=== PATIENT | female | born 1990 | race Caucasian/White ===

== ENCOUNTER 2020-05-09 05:29 | Inpatient (IN) ==
--- NOTE | 2020-05-08 14:07 | History and Physical Report ---
DATE OF ADMISSION: 05/09/2020 CHIEF COMPLAINT: Preop for . BRIEF HISTORY: The patient is a 30-year-old G3, P0-0-2-0, at 39 weeks gestational age with an TYLOR of 05/15/2020 by LMP of 08/09/2019 consistent with first trimester ultrasound who presents for a scheduled preoperative appointment for primary section tomorrow for breech presentation. Endorses movement. Denies contractions, leaking of fluid or vaginal bleeding. Was found to be breech at last visit and was counseled regarding external cephalic version versus primary section and did opt for section. ISSUES: 1. Breech. 2. History of missed AB x2. LABS: B positive, antibody screen negative, first trimester hematocrit was 37.7, RPR nonreactive. Hepatitis B surface antigen nonreactive, rubella immune, HIV negative, chlamydia negative, gonorrhea negative, GBS negative, COVID negative. One hour Glucola was 114. Anatomy scan within normal limits with a fundal placenta. Genetic screening declined. 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 G1 2012 SAB. 2. G2 2018 SAB. 3. G3, current . Menarche at age 11. Periods are regular every 28 days. She does have a history of cryosurgery in 2014. Last Pap of 03/2019, had negative cotesting. No history of STDs. PAST MEDICAL HISTORY: None. PAST SURGICAL HISTORY: 1. History of cryosurgery. 2. [place] teeth extraction. MEDICATIONS: vitamin ALLERGIES: AMOXICILLIN CAUSING HIVES SOCIAL HISTORY: Denies any tobacco, alcohol or illicit drug use. FAMILY HISTORY: Not significant for defects, congenital heart disease or VTE disorder. OBJECTIVE: VITAL SIGNS: Blood pressure 118/72. GENERAL: Alert, in no acute distress. HEENT: Normocephalic, atraumatic. HEART: Regular rate and rhythm. LUNGS: Clear to auscultation bilaterally. ABDOMEN: Soft, gravid, nontender. Bedside ultrasound confirmed breech position. heart tones were visualized on the ultrasound and within normal limits. ASSESSMENT: The patient is a 30-year-old G3, P0-0-2-0, at 39 weeks gestational age, presenting for preoperative appointment for scheduled primary section secondary to breech presentation. PLAN: Including indications, risks, benefits, and alternatives for primary were reviewed with risks including infection, bleeding, injury to adjacent structures including bowel, bladder, ureters, blood vessels, nerves, baby with possible need for life-saving blood transfusion and/or hysterectomy. All questions were reviewed in depth. Consent was signed by the patient and myself. She did meet with our jewel stripper to review further instructions regarding tomorrow. We will plan on checking position again in the morning. She was given ample time for questions, they were answered to apparent satisfaction. SHARON
[2020-05-09] MEDS ORDERED: LACTATED RINGER'S 1,000 ML IV SCH ×2 (06:00→09:04)
[2020-05-09] MEDS ORDERED: CLINDAMYCIN 900 MG in DEXTROSE 5% 50 ML IV SCH (06:00)
[2020-05-09] MEDS ORDERED: CITRIC ACID/SODIUM CITRATE 15 ML UDC PO SCH (06:00)
[2020-05-09] MEDS ORDERED: DEXTROSE 5% IV SCH (06:00)
[2020-05-09] MEDS ORDERED: GENTAMICIN SULFATE IV SCH (06:00)
[2020-05-09 06:23] LABS: Basophils # (auto) 0.02 K/uL (0-0.2); Basophils % (auto) 0.2 %; Eosinophils # (auto) 0.14 K/uL (0-0.5); Eosinophils % (auto) 1.3 %; Hematocrit (blood only) 36.6 % (37-47); Hemoglobin 12.3 g/dL (12.0-16.0); Immature Granulocytes # (auto) 0.05 K/uL (0.00-0.02); Immature Granulocytes % (auto) 0.5 %; Lymphocytes # (auto) 1.81 K/uL (1.2-3.4); Mean Corpuscular Hemoglobin 30.2 pg (25-34); Mean Corpuscular Volume 89.9 fL (80-100); Mean Platelet Volume 9.4 fL (7.4-10.4); Monocytes # (auto) 0.74 K/uL (0.11-0.59); Neutrophils # (auto) 7.86 K/uL (1.4-6.5); Platelet Count 339 K/uL (130-400); RDW Coefficient of Variation 13.7 % (11.5-14.5); RDW Standard Deviation 45.1 fL (36.4-46.3); Red Blood Count 4.07 M/uL (4.2-5.4); White Blood Count 10.62 K/uL (4.8-10.8)
[2020-05-09 06:25] LABS: Mean Corpuscular Hgb Conc 33.6 g/dL (32-36)
[2020-05-09] MEDS ORDERED: MoRPHine SULFATE PF 1 MG/ML 10 ML AMP/VIAL ONE (06:39)
[2020-05-09] MEDS ORDERED: OXYTOCIN 10 UNITS/ML VIAL ONE (06:39)
[2020-05-09] MEDS ORDERED: ONDANSETRON INJ 2 MG/ML 2 ML VIAL ONE (06:39)
[2020-05-09] MEDS ORDERED: fentaNYL citrate 100 MCG/2 ML VIAL ONE (06:39)
[2020-05-09] MEDS ORDERED: PHENYLEPHRINE 100MCG/ML 5ML SYR ONE (06:39)
--- NOTE | 2020-05-09 06:44 | Anesthesiology Consultation ---
Date of Service May 09, 2020 Assessment & Plan (1) Encounter for pre-operative examination: Chart Review Chart Review: Acceptable Risk for Surgery and Patient NOT seen in Pre Admission Testing Consults Requested none History Surgery Operation Date: 05/09/20 07:30 Proposed Procedures p Section in LD - Codie Valadez MD Height/Weight Height: 5 ft 8 in Weight: 86.183 kg Allergies Allergy/AdvReac Type Severity Reaction Status Date / Time amoxicillin Allergy Hives Verified 05/08/20 10:22 Medications Home Medications Medication Instructions Recorded Confirmed Last Taken prenat.vits,emerson,tgu-[id number] 1 tab PO QAM 10/10/19 05/09/20 05/08/20 22:00 lactobacillus combination no.8 3 3,000 mmu cells PO QAM 10/13/19 05/09/20 05/08/20 20:00 billion cell capsule NPO Date Last Intake of Fluids: 05/08/20 Time Last Intake of Fluids: 22:00 Date Last Intake of Solids: 05/08/20 Time Last Intake of Solids: 19:00 Past Medical History Medical History Encounter for anatomic survey History of chicken pox Miscarriage Missed Nausea and vomiting after administration of anesthetic agent Exercise / Class Metabolic Activity II 4-5 Yardwork/Stairs/Walk up hill Past Family History Family History Grandmother (Paternal) Diabetes Heart disease Grandmother (Paternal) Heart disease Grandfather (Maternal) Heart disease Past Surgical History Surgical History History of cryosurgery CERVIX S/P wisdom tooth extraction Past Anesthesia History No Hx of Anesthesia Complications and No Family Hx of Anesthesia Complications History of PONV No Hx of PONV and No Hx of Motion Sickness Social History Smoking Status: Former smoker Do You Dip or Chew Tobacco: No Smoking End Date: QUIT 2017, THEN SMOKED FOR ABOUT 4 MONTHS. BUT HAS QUIT AGAIN OVER A YEAR Hx Alcohol Use: No Hx Substance Use: No substance use type: does not use Physical Exam Vital Signs Last Vital Signs Temp 37.2 C 05/09/20 05:45 Pulse 76 05/09/20 07:00 Resp 18 05/09/20 05:45 BP 122/77 05/09/20 07:00 Testing Laboratory Results 05/09/20 06:10
--- NOTE | 2020-05-09 07:19 | History & Physical Bridge Note ---
Date of Service May 09, 2020 History & Physical Bridge Note I have examined the patient, reviewed the History & Physical and in the interval since the performance of the History & Physical I have noted the following changes of clinical significance: no changes noted
[2020-05-09] MEDS ORDERED: KETOROLAC 30 MG/ML VIAL IV PRN (07:48)
[2020-05-09] MEDS ORDERED: LACTATED RINGER'S 500 ML IV PRN (07:48)
[2020-05-09] MEDS ORDERED: MEPERIDINE HCL 25 MG/ML CARP/VIAL IV PRN (07:48)
[2020-05-09] MEDS ORDERED: MoRPHine SULFATE PF 1 MG/ML 10 ML AMP/VIAL INT SPINAL ONE (07:48)
[2020-05-09] MEDS ORDERED: NALOXONE HCL 0.4 MG/1 ML VIAL/CARP IV PRN (07:48)
[2020-05-09] MEDS ORDERED: ONDANSETRON INJ 2 MG/ML 2 ML VIAL IV PRN (07:48)
[2020-05-09] MEDS ORDERED: NALOXONE HCL 1 MG in SODIUM CHLORIDE 0.9% 1000ML 1,000 ML IV PRN (07:48)
[2020-05-09] MEDS ORDERED: ePHEDrine sulfate 50 MG/ML AMP IV PRN (07:48)
[2020-05-09] MEDS ORDERED: diphenhydrAMINE 50 MG/ML VIAL IV PRN (07:48)
[2020-05-09] MEDS ORDERED: NALOXONE HCL 0.08 MG in SYRINGE 1.8 ML IV PRN (07:48)
[2020-05-09] MEDS ORDERED: MoRPHine SULFATE 2 MG/ML CARP IV PRN (07:48)
[2020-05-09] MEDS ORDERED: NO NARCOTICS OR SEDATIVES SCH (08:00)
[2020-05-09] MEDS ORDERED: SODIUM CHLORIDE 0.9% 1000ML 1,000 ML IV SCH (08:00)
--- NOTE | 2020-05-09 08:49 | Post Operative Brief Note ---
PG Immediate Post Op with CF Date of Surgery May 09, 2020 Pre & Post Diagnosis Operation Date: 05/09/20 07:30 Pre-Op Diagnosis: single intrauterine at 39 and 1/7 weeks gestation, breech presentation Post-Op Diagnosis: single intrauterine at 39 and 1/7 weeks gestation, breech presentation I identified the patient and participated in the time-out.: Yes Procedure Operation Date: 05/09/20 07:30 Actual Procedures p Primary Low Transverse Section in LD for live female at 0759 - Codie Valadez MD Surgeon Codie Valadez MD Primary Counselor Lloyd Ferrara MD Estimated Blood Loss 600 Findings Consistent with Post-Op Diagnosis Normal appearing uterus, bilateral fallopian tubes, and right ovary. Posterior left ovary had findings consistent with old endometrioma, but remainder of left ovary was within normal limits. Findings also include viable female infant with APGARs 8 and 9 Fluids 1500ml Specimens Specimen Description: placenta-hold arterial and venous cord blood gases cord blood Drains Nolasco Catheter (UOP 200ml) Anesthesia Type L&D Only Epidural Exists Complications none Disposition Accompanied Patient To Recovery: Yes Disposition: L&D
--- NOTE | 2020-05-09 08:50 | Anesthesiology Progress Note ---
Date of Service May 09, 2020 Anesthesia Post Procedure Vital Signs Vital Signs: Temp Pulse Resp BP Pulse Ox 05/09/20 08:46 80 100 05/09/20 08:42 76 122/68 05/09/20 08:41 86 99 05/09/20 07:00 37.0 C 76 18 122/77 05/09/20 05:45 37.2 C 18 05/09/20 05:44 76 136/83 05/09/20 05:38 83 140/90 Transfer of Care Handoff Completed per policy Notes Mental Status: alert / awake / arousable and participated in evaluation Patient Amnestic to Procedure: No Nausea / Vomiting: adequately controlled Pain: adequately controlled Airway Patency, RR, SpO2: stable & adequate BP & HR: stable & adequate Hydration State: stable & adequate Neuraxial Anesthesia: was administered and sensory block is resolving Anesthetic Complications: no major complications apparent and Pt Satisfied with anesthetic care
[2020-05-09] MEDS ORDERED: DIPHTHERIA/TETANUS/PERTUSSIS 0.5 ML SYR/VIAL IM ONE (09:04)
[2020-05-09] MEDS ORDERED: SENNA 8.6 MG TAB PO PRN (09:04)
[2020-05-09] MEDS ORDERED: MAGNESIUM HYDROXIDE SUSP 30 ML UDC PO PRN (09:04)
[2020-05-09] MEDS ORDERED: BENZOCAINE 20% AER SPR 82.5 GM CAN EXT PRN (09:04)
[2020-05-09] MEDS ORDERED: HYDROCORTISONE ACETATE 25 MG SUPP PR PRN (09:04)
[2020-05-09] MEDS ORDERED: SUPERCREAM 0.870% 15 GM JAR EXT PRN (09:04)
[2020-05-09] MEDS ORDERED: OXYTOCIN 20 UNITS in LACTATED RINGER'S 1,000 ML IV SCH (09:30)
--- NOTE | 2020-05-09 10:23 | Operative Report ---
PG Post Operative Report Pre & Post Diagnosis Operation Date: 05/09/20 07:30 Pre-Op Diagnosis: single intrauterine at 39 and 1/7 weeks gestation, breech presentation Post-Op Diagnosis: single intrauterine at 39 and 1/7 weeks gestation, breech presentation I identified the patient and participated in the time-out.: Yes Procedure Operation Date: 05/09/20 07:30 Actual Procedures p Primary Low Transverse Section in for live female at 0759 - Codie Valadez MD Surgeon Codie Valadez MD Boat Finisher Lloyd Ferrara MD Estimated Blood Loss 600 Findings Consistent with Post-Op Diagnosis Normal appearing uterus, bilateral fallopian tubes, and right ovary. Posterior left ovary had findings consistent with old endometrioma, but remainder of left ovary was within normal limits. Findings also include viable female infant with APGARs 8 and 9 Fluids 1500ml Specimens Placenta, cord blood, cord gases Drains Nolasco catheter draining clear urine Anesthesia Type L&D Only Epidural Exists Complications none Disposition Accompanied Patient To Recovery: Yes Disposition: L&D Indications 30-year-old G3, P0-0-2-0 at 39 and 1/7 weeks gestational age with an TYLOR of 05/15/2020 by LMP of 08/09/2019 consistent with first trimester ultrasound who p resents for a scheduled section for breech presentation. Was found to be breech at 38 week visit and was counseled regarding external cephalic version versus primary section and did opt for section. Consent reviewed and signed. BSUS was performed prior to procedure confirming persistent breech presentation. Description of Procedure The patient was taken to the operating room after consents were ensured. The patient was properly identified. Spinal anesthesia was obtained without difficulty. Antibiotic prophylaxis was started prior to anesthesia. The patient was placed in a dorsal supine position with left lateral tilt. The patient was prepped and draped in normal sterile fashion. Anesthesia was tested to ensure adequate surgical levels. Pfannenstiel skin incision was performed and carried down to the underlying fascia with a knife. The fascia was then nicked in the midline and extended laterally with pickups and Bolaños scissors. The superior portion of the fascia was grasped with Kochers x2 and elevated off the underlying rectus muscles using blunt dissection and Bolaños scissors. The inferior portion of the fascia was then grasped with Ale clamps x2 and also elevated off the underlying muscles with blunt dissection and Bolaños scissors. Midline was then identified. The peritoneum was then entered and extended to provide adequate room for delivery of baby. The hand was inserted into the abdomen, uterus was noted to be clear of adhesions. Bladder blade was inserted. Bladder flap was created in the normal fashion. A low transverse uterine incision was then made in the uterus and extended bluntly in a superior to inferior fashion. Amniotomy was made at that time, with clear fluid at the time of rupture. breech was grasped and elevated to the hysterotomy. Breech was delivered atraumatically, right and left hips were delivered atraumatically using pinard maneuver. Moist blue towel was wrapped around the torso and delivered to the scapula. The left arm was swept across the chest atraumatically and delivered. The same was performed on the contralateral side. Okcnbhzoq-Aplonyo-Cppn maneuver was performed to deliver the head atraumatically. Nose and mouth were bulb suctioned on the surgical field. The cord was double clamped and cut and baby was handed off to awaiting nursery staff. Cord segment and blood were obtained. Placenta was then expressed from the uterus. The uterus was exteriorized. Several passes were made inside the uterus to remove the remaining membranes. Attention was then turned to the hysterotomy, which was then closed with a running locked suture of 0 Vicryl on a CTX needle. Imbricating layer was performed using 0 monocryl. There was noted to be good hemostasis. The posterior cul-de-sac was then inspected and cleaned of clot and debris. L ovary was noted to have findings c/w prior and resolved endometrioma and was stable. The hysterotomy was again inspected and noted to be hemostatic. The uterus was returned to the abdomen. The right and left pericolic gutters were cleaned of all clot and debris. The hysterotomy was again noted to be hemostatic. Space of Retzius was noted to be hemostatic. The fascia was then closed with a running suture of 0 Vicryl on a CT1 needle. Subcutaneous tissue was copiously irrigated and noted to be hemostatic. Subcutaneous tissue was reapproximated using 2-0 plain gut. The skin was then closed with a running suture of 3-0 Monocryl in a subcuticular fashion. At termination of the procedure, the fundal pressure was applied and a moderate amount of lochia was expressed. Dermabond was applied to the patient. She tolerated the procedure well. All sponge, needle, instrument counts were correct x 2. I attest to the content of the Intraoperative Record and any orders documented therein. Any exceptions are noted below. OB Procedure charges OB Charges 21394 C/S
[2020-05-09] MEDS: SIMETHICONE 80 MG CHEW PO SCH ×3 (12:32→20:35)
[2020-05-09] MEDS: DOCUSATE SODIUM 100 MG CAP PO SCH (20:35)
[2020-05-10] MEDS: IBUPROFEN 600 MG TAB PO PRN ×5 (00:03→20:07)
[2020-05-10] MEDS ORDERED: DC INTRASPINAL MORPHINE ONE (01:48)
[2020-05-10] MEDS ORDERED: oxyCODONE/ACETAMINOPHEN 5mg/325mg TAB PO PRN (01:49)
[2020-05-10] MEDS ORDERED: ONDANSETRON INJ 2 MG/ML 2 ML VIAL IV PRN (01:49)
[2020-05-10] MEDS ORDERED: diphenhydrAMINE 50 MG/ML VIAL IV PRN (01:49)
[2020-05-10] MEDS ORDERED: diphenhydrAMINE Capsule 25 MG CAP PO PRN (01:49)
[2020-05-10] MEDS ORDERED: PROMETHAZINE HCL 25 MG in SODIUM CHLORIDE 0.9% 50 ML IV PRN (01:49)
[2020-05-10 06:27] LABS: Basophils # (auto) 0.01 K/uL (0-0.2); Basophils % (auto) 0.1 %; Eosinophils # (auto) 0.17 K/uL (0-0.5); Eosinophils % (auto) 1.5 %; Hematocrit (blood only) 36.1 % (37-47); Hemoglobin 12.1 g/dL (12.0-16.0); Immature Granulocytes # (auto) 0.06 K/uL (0.00-0.02); Immature Granulocytes % (auto) 0.5 %; Lymphocytes # (auto) 1.96 K/uL (1.2-3.4); Lymphocytes % (auto) 17.5 %; Mean Corpuscular Hemoglobin 30.3 pg (25-34); Mean Corpuscular Hgb Conc 33.5 g/dL (32-36); Mean Corpuscular Volume 90.3 fL (80-100); Mean Platelet Volume 9.2 fL (7.4-10.4); Monocytes # (auto) 0.79 K/uL (0.11-0.59); Monocytes % (auto) 7.1 %; Neutrophils # (auto) 8.19 K/uL (1.4-6.5); Neutrophils % (auto) 73.3 %; Platelet Count 280 K/uL (130-400); RDW Coefficient of Variation 13.8 % (11.5-14.5); RDW Standard Deviation 45.8 fL (36.4-46.3); White Blood Count 11.18 K/uL (4.8-10.8)
--- NOTE | 2020-05-10 07:43 | Obstetrical Progress Note ---
Date of Service May 10, 2020 Assessment & Plan (1) : 30 y/o POD1 s/p pLTCS for breech presentation, doing well -Meeting all pp milestones, continue routine pp care -B+/rub imm Subjective Ambulation: ambulating normally Voiding: no voiding problems Passing Gas:: Yes Diet Tolerance:: regular diet Lochia:: Moderate (improving) Feeding Type:: breast feeding abd pain managed with pain meds Review of Systems Denies fevers, chills, n/v, REDDY, CP, SOB Physical Exam Constitutional WD/WN, vitals as above + not well nourished and no acute distress Respiratory normal respiratory effort, lungs clear to auscultation normal respiratory effort; no respiratory distress and no labored breathing Auscultation: lungs clear to auscultation bilaterally Cardiovascular RRR, no murmur, no edema Gastrointestinal (Abdomen) Inspection/Auscultation: abdomen normal to inspection and + abdominal surgical scar (c/d/i) Percussion/Palpation: abdomen soft; abdomen nontender and no guarding Fundus firm below umbilicus, NT Musculoskeletal BLE symmetric, nonerythematous, nontender Psychiatric A+Ox3, euthymic affect Results & Data ([facility]) Vital Signs (Past 12 Hours) Vital Signs Temp Pulse Resp BP Pulse Ox 05/10/20 07:12 98.1 F 64 16 122/79 05/10/20 04:40 98.8 F 82 16 124/77 98 05/10/20 01:16 17 99 05/10/20 00:05 16 98 05/09/20 23:45 99.3 F 82 18 120/78 98 05/09/20 23:00 16 98 05/09/20 22:00 17 99 05/09/20 21:00 16 98 05/09/20 20:25 97.5 F L 93 H 16 118/77 98 Laboratory Results 05/10/20 05/09/20 05/09/20 Range/Units 06:16 07:59 07:59 WBC 11.18 H (4.8-10.8) K/uL RBC 4.00 L (4.2-5.4) M/uL Hgb 12.1 (12.0-16.0) g/dL Hct 36.1 L (37-47) % MCV 90.3 (80-100) fL MCH 30.3 (25-34) pg MCHC 33.5 (32-36) g/dL RDW Std Deviation 45.8 (36.4-46.3) fL RDW Coeff of John 13.8 (11.5-14.5) % Plt Count 280 (130-400) K/uL MPV 9.2 (7.4-10.4) fL Immature Gran % (Auto) 0.5 % Neut % (Auto) 73.3 % Lymph % (Auto) 17.5 % [place] % (Auto) 7.1 % Eos % (Auto) 1.5 % Baso % (Auto) 0.1 % Neut # (Auto) 8.19 H (1.4-6.5) K/uL Lymph # (Auto) 1.96 (1.2-3.4) K/uL [place] # (Auto) 0.79 H (0.11-0.59) K/uL Eos # (Auto) 0.17 (0-0.5) K/uL Baso # (Auto) 0.01 (0-0.2) K/uL Immature Gran # (Auto) 0.06 H (0.00-0.02) K/uL Cord ABG pH Cancelled Cord ABG pCO2 Cancelled Cord ABG pO2 Cancelled Cord ABG HCO3 Cancelled Cord ABG Base Excess Cancelled Cord ABG O2 Sat Cancelled Cord VBG pH Cancelled Cord VBG pCO2 Cancelled Cord VBG pO2 Cancelled Cord VBG HCO3 Cancelled Cord VBG Base Excess Cancelled Cord VBG O2 Sat Cancelled Barometric Pressure Cancelled Cancelled Blood Gas Comments Cancelled Cancelled
[2020-05-10] MEDS: DOCUSATE SODIUM 100 MG CAP PO SCH ×2 (09:02→20:07)
[2020-05-10] MEDS: SIMETHICONE 80 MG CHEW PO SCH ×4 (09:02→21:12)
[2020-05-10] MEDS: FERROUS SULFATE 325 MG TAB PO SCH (09:02)
[2020-05-10] MEDS: PRENATAL VITAMIN 1 TAB PO SCH (09:02)
[2020-05-10] MEDS ORDERED: bisacodyL 5 MG TABEC PO SCH (20:00)
[2020-05-11] MEDS: IBUPROFEN 600 MG TAB PO PRN ×3 (00:14→15:38)
--- NOTE | 2020-05-11 08:09 | Obstetrical Progress Note ---
Date of Service May 11, 2020 Assessment & Plan (1) examination following delivery: stable, doing well. wants to go home. no labs were ordered today. hgb noted from pod #1 and no issues with bleeding. breast, rh pos, ri. instructions reviewed and given. plan 6wk pp check. script sent to pharm after checking on papdmp and no issues. Day #:: 2 Subjective Ambulation: ambulating normally Voiding: no voiding problems Passing Gas:: Yes Diet Tolerance:: regular diet Lochia:: Small Feeding Type:: breast feeding denies pain issues. doing well. not using percocet her in hospital so far. wants to go home today. Physical Exam Constitutional WD/WN, vitals as above Respiratory normal respiratory effort, lungs clear to auscultation Cardiovascular Rate/Rhythm: regular rate and regular rhythm Gastrointestinal (Abdomen) Inspection/Auscultation: abdomen normal to inspection and + abdominal surgical incision (c/d/i with dermabond) Percussion/Palpation: abdomen soft Fundus firm 2cm down Musculoskeletal nt calves no edema Neurologic grossly normal Psychiatric A+Ox3, euthymic affect Results & Data ([facility]) Vital Signs (Past 12 Hours) Vital Signs Temp Pulse Resp BP Pulse Ox 05/10/20 23:40 97.5 F L 77 18 127/79 100
[2020-05-11] MEDS ORDERED: bisacodyL 10 MG SUPP PR PRN (08:40)
[2020-05-11] MEDS: PRENATAL VITAMIN 1 TAB PO SCH (09:38)
[2020-05-11] MEDS: DOCUSATE SODIUM 100 MG CAP PO SCH ×2 (09:38→20:45)
[2020-05-11] MEDS: SIMETHICONE 80 MG CHEW PO SCH ×3 (09:39→20:44)
[2020-05-11] MEDS: FERROUS SULFATE 325 MG TAB PO SCH (09:39)
[2020-05-12] MEDS: IBUPROFEN 600 MG TAB PO PRN (01:26)
--- NOTE | 2020-05-12 07:20 | Obstetrical Progress Note ---
Date of Service May 12, 2020 Assessment & Plan (1) examination following delivery: Ready for home today. Subjective Patient stayed overnight despite planned discharge due to recommendation of desk lieutenant. She continues to be well and desire D/C home. Physical Exam Constitutional WD/WN, vitals as above Respiratory normal respiratory effort, lungs clear to auscultation Cardiovascular Rate/Rhythm: regular rate and regular rhythm Gastrointestinal (Abdomen) Inspection/Auscultation: abdomen normal to inspection and + abdominal surgical incision (c/d/i with dermabond) Percussion/Palpation: abdomen soft Fundus firm 2cm down Musculoskeletal nt calves no edema Neurologic grossly normal Psychiatric A+Ox3, euthymic affect Results & Data ([facility]) Vital Signs (Past 12 Hours) Vital Signs Temp Pulse Resp BP Pulse Ox 05/12/20 01:25 98.8 F 69 16 127/83 98
[2020-05-12] MEDS: DOCUSATE SODIUM 100 MG CAP PO SCH (08:42)
[2020-05-12] MEDS: PRENATAL VITAMIN 1 TAB PO SCH (08:42)
[2020-05-12] MEDS: FERROUS SULFATE 325 MG TAB PO SCH (08:42)
[2020-05-12] MEDS: SIMETHICONE 80 MG CHEW PO SCH (08:42)
--- NOTE | 2020-05-13 16:05 | Discharge Summary ---
Date of Service May 13, 2020 Admission HPI Per Admitting Provider 30-year-old G3, P0-0-2-0, at 39 weeks gestational age with an TYLOR of 05/15/2020 by LMP of 08/09/2019 consistent with first trimester ultrasound who presents for a scheduled preoperative appointment for primary section tomorrow for breech presentation. Endorses movement. Denies contractions, leaking of fluid or vaginal bleeding. Was found to be breech at last visit and was counseled regarding external cephalic version versus primary section and did opt for section. Admission Exam (Per Admitting) Constitutional WD/WN, vitals as above + not well nourished and no acute distress Respiratory normal respiratory effort, lungs clear to auscultation normal respiratory effort; no respiratory distress and no labored breathing Auscultation: lungs clear to auscultation bilaterally Cardiovascular RRR, no murmur, no edema Gastrointestinal (Abdomen) Inspection/Auscultation: abdomen normal to inspection Percussion/Palpation: abdomen soft; abdomen nontender and no guarding Psychiatric A+Ox3, euthymic affect Discharge Data Consultations 05/09/20 05:31 Consult Anesthesiology Stat Procedures Performed Operation Date: 05/09/20 07:30 Actual Procedures p Section in LD for live female at 0759 - Codie Valadez MD Hospital Course (1) : See operative report for delivery details. course was uncomplicated and she was stable for discharge on POD3 Coding Level of Care Code None Diagnoses Z34.90
== END 2020-05-12 12:00 | disposition home or self-care (01) | DRG 788 ==
LOC: 4S1 05:29 → EDSTATUS 07:30 → 4S2 11:16